=== PATIENT | female | born 1990 | race Caucasian/White ===

== ENCOUNTER → 2018-04-13 | Outpatient (CLI) | payer BC | END | disposition home or self-care (01) | LOC: CDC 15:30 | DX: I49.8 Other specified cardiac arrhythmias (principal) | CPT/HCPCS: 93000 ==

== ENCOUNTER → 2018-04-27 | Outpatient (CLI) | payer BC | END | disposition home or self-care (01) | LOC: EKG 08:30 | DX: I51.7 Cardiomegaly (principal) | CPT/HCPCS: 93306 ==